=== PATIENT | male | born 1955 | race Two or more races ===

== ENCOUNTER 2020-04-27 19:33 | Emergency (ER) | payer SELFPAY ==
[~2020-04-27] VITALS: Ht 167.6 cm; Wt 77.1 kg
[2020-04-27 19:50] VITALS: BP 110/70
--- NOTE | 2020-04-27 19:50 | NUR ---
ED Nurse Note: pt ambulated into ed from home CO pain during urination with difficulty voiding. Pt states that he cannot empty bladder completely and is experiencing increased frequency. Pt states that current issue originally occured around 1400 today but was able to urinate regularly earlier in the day. Pt states previous history of BPH and states that he takes medication regularly but cannot remember the name of the medication. Pt denies blood in urine. Pt aao x 4, ambulates with steady gait, restless, pain 8/10. Awaiting further orders. Awaiting ERMD at bedside.
--- NOTE | 2020-04-27 19:52 | NUR ---
ED Nurse Note: pt ambulated to restroom with steady gait to attempt to urinate and provide urine sample.
--- NOTE | 2020-04-27 19:55 | NUR ---
ED Nurse Note: pt able to provide urine sample but states that he can only produce a small amount at a time. ERMD aware
--- NOTE | 2020-04-27 20:13 | NUR ---
ED Nurse Note: Per ERMD, hold urinary catheter at this time. Continue to monitor. Pt able to produce small amount of urine, visits restroom frequently. ERMD aware.
--- NOTE | 2020-04-27 20:28 | NUR ---
ED Nurse Note: ERMD AT BEDSIDE FOR INITIAL ASSESSMENT
--- NOTE | 2020-04-27 20:40 | NUR ---
ED Nurse Note: Urinary catheter placed per ERMD. Pt output: 1.3L. Catheter clamped per ERMD. VSS, will continue to monitor pt. no ss of distress noted at this time. pt states pain 4/10, previous pain 8/10.
[2020-04-27] MEDS ORDERED: Cephalexin 500mg cap ORAL ONE (21:00)
--- NOTE | 2020-04-27 21:00 | NUR ---
ED Nurse Note: Per ERMD, urinary catheter unclamped, pt VSS no of distress noted. pt denies pain or discomfort. will continue to monitor.
--- NOTE | 2020-04-27 21:00 | Emergency Room Report ---
History of Present Illness General Chief Complaint: Male Urogenital Problems Source: Patient Present Illness HPI Patient is a 65-year-old male presents for increased difficulty with urination. Reports having increased urinary hesitancy and difficulty with voiding. He has been able to urinate only small amounts of fluid. Had prior history of prostate disease. Denies any fever. Denies any hematuria. Had not been having any vomiting or diarrhea. Patient had been having symptoms since earlier in the day. Reports having previously been on some prostate medication but does not recall the names. Allergies: Coded Allergies: No Known Allergies (Unverified , 04/27/20) COVID-19 Screening Contact w/high risk pt: No Experienced COVID-19 symptoms?: No COVID-19 Testing performed HAND CANDLE MOLDER: No Patient History Past Medical History: see triage record Reviewed Nursing Documentation: PMH: Agreed; PSxH: Agreed Nursing Documentation-PMH Past Medical History: No Stated History Review of Systems All Other Systems: negative except mentioned in HPI Physical Exam Vital Signs Date Time Temp Pulse Resp B/P (MAP) Pulse Ox O2 Delivery O2 Flow Rate FiO2 04/27/20 19:44 98.2 131 18 110/70 (83) 96 Room Air General Appearance: well appearing, no apparent distress, alert, GCS 15 Head: normocephalic, atraumatic ENT: hearing grossly normal, normal voice Neck: full range of motion, supple Respiratory: no respiratory distress, speaking full sentences Gastrointestinal: other - suprapubic bladder distention Musculoskeletal: normal inspection, no calf tenderness Neurologic: alert, motor strength/tone normal, hearing stenographer III-XII nml as tested, normal gait Psychiatric: mood/affect normal Skin: no rash Medical Decision Making Diagnostic Impression: Primary Impression: Acute urinary retention ER Course Patient presented for increased difficulty with urination. Differential diagnosis include was not limited to prostatitis, urinary tract infection, urinary retention among others. Patient has a benign exam and does not appear to require any imaging or laboratory testing at this time. Patient has an overall benign exam. patient was noted to have significant urinary retention after voiding and Mccormack catheter was placed. Had large amount of urine after catheter was placed. Patient is given prescription for oral antibiotics as well as Flomax. He was advised to follow-up with his urologist for recheck. This medical record is generated with [employer] sink cutter software. There may be some sink cutter discrepancies related to use of this software Last Vital Signs Date Time Temp Pulse Resp B/P (MAP) Pulse Ox O2 Delivery O2 Flow Rate FiO2 04/27/20 19:50 98.2 131 18 110/70 96 Room Air Status: improved Disposition: HOME, SELF-CARE Condition: Stable Referrals: NOT CHOSEN IPA/,REFERRING (PCP) Blu Potter MD Apr 27, 2020 21:00
[2020-04-27] MEDS ORDERED: CEPHALEXIN500 MG ORAL (21:01)
--- NOTE | 2020-04-27 21:05 | NUR ---
ED Nurse Note: all medications administered, pt tolerated well no ss of distress noted. will continue to monitor.
[2020-04-27 21:08] VITALS: BP 133/86
--- NOTE | 2020-04-27 21:08 | NUR ---
ED Nurse Note: pt resting in bed, VSS no ss of distress noted. pt stated pain is now 0/10, no discomfort noted. will continue to monitor.
[2020-04-27 21:14] LABS: BILIRUBIN, URINE NEGATIVE (NEGATIVE); COLOR,URINE PALE YELLOW; GLUCOSE, URINE (UA) NEGATIVE (NEGATIVE); KETONES,URINE NEGATIVE (NEGATIVE); LEUKOCYTE ESTERASE ,URINE 1+ (NEGATIVE); NITRITE,URINE NEGATIVE (NEGATIVE); PH,URINE 6 (4.5-8.0); PROTEIN,URINE 1+ (NEGATIVE); UROBILINOGEN,URINE NORMAL MG/DL (0.0-1.0)
[2020-04-27 21:17] LABS: APPEARANCE,URINE SLIGHTLY CLOUDY
--- NOTE | 2020-04-27 21:59 | NUR ---
ED Nurse Note: ERMD at bedside
--- NOTE | 2020-04-27 22:29 | NUR ---
ED Nurse Note: Mccormack catheter bag drained for total of 2100 mls, VSS no ss of distress noted. Bag replaced with leg bag per ERMD. Pt tolerated well. Pt given education on leg bag and home care. Pt able to provide teach back regarding leg bag and home care effectively.
[2020-04-27 22:45] VITALS: BP 127/81
--- NOTE | 2020-04-27 22:45 | NUR ---
ER DISCHARGE NOTE: Patient is cleared to be discharged home with urinary leg bag per ERMD, pt is aox4, 100% on room air, with stable vital signs. pt was given dc and prescription instructions, pt was able to verbalize understanding, pt id band and iv site removed without complications. pt is able to ambulate with steady gait. pt took all belongings. Addendum: 04/27/20 at 2321 by CRISTINA ER DISCHARGE NOTE: Patient is cleared to be discharged home with urinary leg bag per ERMD, pt is aox4, 100% on room air, with stable vital signs. pt was given dc and prescription instructions, pt was able to verbalize understanding, pt id band removed without complications. pt is able to ambulate with steady gait. pt took all belongings.
== END 2020-04-27 22:45 | disposition home or self-care (01) ==
LOC: EMR 20:00
DX: R33.9 Retention of urine, unspecified (principal)
CPT/HCPCS: 81003; 99283